=== PATIENT | female | born 1950 | race Hispanic/Latino ===

== ENCOUNTER 2022-08-25 09:11 | Emergency (ER) | payer MEDICARE ==
[~2022-08-25] VITALS: Ht 160 cm; Wt 72.6 kg
[2022-08-25] MEDS ORDERED: KETOROLAC TROMETHAMINE 60 MG/2 ML VIAL IM ONE (09:30)
[2022-08-25] MEDS ORDERED: KETOROLAC TROMETHAMINE 60 MG/2 ML VIAL ONE (09:36)
[2022-08-25] MEDS ORDERED: ULTRAM 50MG50 MG PO ×2 (09:52→10:02)
== END 2022-08-25 12:50 | disposition home or self-care (01) ==
LOC: ER 09:17
DX: M25.561 Pain in right knee (principal); M23.91 Unspecified internal derangement of right knee; M25.461 Effusion, right knee; Z91.81 History of falling; I10 Essential (primary) hypertension; E11.40 Type 2 diabetes mellitus with diabetic neuropathy, unspecified; E78.5 Hyperlipidemia, unspecified
CPT/HCPCS: 73562; 99283; J1885